=== PATIENT | male | born 1980 | race Caucasian/White ===

== ENCOUNTER 2018-10-20 19:48 | Inpatient (IN) | payer MEDICAID ==
[2018-10-20 20:24] LABS: ADD MAN DIFF? NO
[2018-10-20 20:27] LABS: WHITE BLOOD COUNT 8.6 10^3/ul (4.8-10.8)
[2018-10-20 20:27] LABS: BASOPHILS % 0.2 % (0.0-2.0); EOSINOPHILS # 0.1 10^3/ul (0.0-0.5); EOSINOPHILS % 0.7 % (0.0-7.0); HEMATOCRIT 41.5 % (42.0-52.0); HEMOGLOBIN 14.2 g/dl (14.0-18.0); LYMPHOCYTES # 1.7 10^3/ul (0.8-2.9); LYMPHOCYTES % 19.9 % (15.0-51.0); MEAN CORPUSCULAR HEMOGLOBIN 28.9 pg (29.0-33.0); MEAN CORPUSCULAR HGB CONC 34.2 g/dl (32.0-37.0); MEAN CORPUSCULAR VOLUME 84.5 fl (82.0-101.0); MEAN PLATELET VOLUME 9.2 fl (7.4-10.4); MONOCYTE # 0.8 10^3/ul (0.3-0.9); MONOCYTES % 9.3 % (0.0-11.0); NEUTROPHILS % 69.5 % (39.0-77.0); PLATELET COUNT 256 10^3/UL (140-415); RED BLOOD COUNT 4.91 10^6/ul (4.70-6.10); RED CELL DISTRIBUTION WIDTH 11.7 % (11.5-14.5)
[2018-10-20] MEDS: SODIUM CHLORIDE 0.9% 1L BAG IV* (20:28)
[2018-10-20] MEDS: ACETAMINOPHEN 325 MG TAB PO (20:28)
[2018-10-20] MEDS: CEFEPIME 2GM/50 ML (PMX) 50 ML IVPB (20:29)
[2018-10-20 20:42] LABS: INR 1.03; PROTIME 13.6 Sec (11.9-14.9); PT RATIO 1.1
[2018-10-20 20:43] LABS: ADD UMIC YES; UR ASCORBIC ACID NEGATIVE (NEGATIVE); UR BILIRUBIN (Dip) NEGATIVE (NEGATIVE); UR BLOOD (Dip) 2+ mg/dL (NEGATIVE); UR CLARITY CLEAR (CLEAR); UR COLOR STRAW (YELLOW); UR GLUCOSE (Dip) NEGATIVE (NEGATIVE); UR KETONES (Dip) NEGATIVE (NEGATIVE); UR LEUKOCYTE ESTERASE (Dip) NEGATIVE Leu/ul (NEGATIVE); UR NITRITE (Dip) NEGATIVE (NEGATIVE); UR RBC 7 /HPF (0-5); UR SPECIFIC GRAVITY (Dip) 1.006 (1.003-1.030); UR TOTAL PROTEIN (Dip) NEGATIVE (NEGATIVE); UR UROBILINOGEN (Dip) NEGATIVE (NEGATIVE); UR WBC 0 /HPF (0-5)
[2018-10-20] MEDS: ASPIRIN 325 MG TAB PO (20:45)
[2018-10-20 20:48] LABS: ALANINE AMINOTRANSFERASE 15 IU/L (13-69); ALBUMIN 4.7 g/dl (3.3-4.9); ALBUMIN/GLOBULIN RATIO 1.14; ALKALINE PHOSPHATASE 65 IU/L (42-121); ANION GAP 10 (5-13); ASPARTATE AMINO TRANSFERASE 20 IU/L (15-46); BILIRUBIN,INDIRECT 1.2 mg/dl (0-1.1); BILIRUBIN,TOTAL 1.2 mg/dl (0.2-1.3); BLOOD UREA NITROGEN 12 mg/dl (7-20); CALCIUM 9.4 mg/dl (8.4-10.2); CARBON DIOXIDE 28 mmol/L (21-31); CHLORIDE 101 mmol/L (97-110); CREATININE 0.95 mg/dl (0.61-1.24); Estimated GFR > 60 mL/min (>60); GLUCOSE 99 mg/dl (70-220); SODIUM 139 mmol/L (135-144); TOTAL PROTEIN 8.8 g/dl (6.1-8.1)
[2018-10-20] MEDS: VANCOMYCIN 1 GM (PMX) 250 ML IVPB (20:59)
[2018-10-20 21:00] LABS: TROPONIN-I < 0.012 ng/ml (0.000-0.120)
[2018-10-20 21:05] LABS: CREATINE KINASE 81 IU/L (23-200)
[2018-10-20 21:06] LABS: C-REACTIVE PROTEIN 4.1 mg/dl (0.0-0.9)
[2018-10-20 21:15] LABS: CK INDEX 0.3; CK-MB < 0.22 ng/ml (0.0-2.4)
[2018-10-20 22:03] LABS: ERYTHROCYTE SEDIMENTATION RATE 25 mm/Hr (0-15)
[2018-10-20] MEDS: SOD CHLORIDE 0.9% 100 ML (22:10)
[2018-10-20] MEDS: IOHEXOL 300MG/ML 150 ML BTL (22:10)
[2018-10-20] MEDS ORDERED: NACL 0.9% 3 ML SYG IV (23:30)
[2018-10-20] MEDS ORDERED: ONDANSETRON 4 MG INJ IV (23:30)
[2018-10-20] MEDS ORDERED: BISACODYL (EC) 5 MG TAB PO (23:30)
[2018-10-20] MEDS ORDERED: VANCOMYCIN IV PER PHARMACY XX (23:30)
[2018-10-20] MEDS ORDERED: DOCUSATE SODIUM 100 MG CAP PO (23:30)
[2018-10-20] MEDS ORDERED: HYDROCODONE/APAP (5/325) TAB PO (23:30)
[2018-10-21 00:07] LABS: TROPONIN-I < 0.012 ng/ml (0.000-0.120)
[2018-10-21] MEDS ORDERED: VANCOMYCIN 750 MG (PMX) 250 ML IVPB (01:00)
[2018-10-21] MEDS: PIPER-TAZO 3.375 GM IV (PMX) 100 ML IVPB ×5 (01:03→23:21)
[2018-10-21 01:37] LABS: CREATINE KINASE 64 IU/L (23-200)
[2018-10-21 01:51] LABS: CK INDEX 0.3; CK-MB < 0.22 ng/ml (0.0-2.4); TROPONIN-I < 0.012 ng/ml (0.000-0.120)
[2018-10-21 06:52] LABS: ADD MAN DIFF? NO
[2018-10-21 06:59] LABS: BASOPHILS % 0.3 % (0.0-2.0); EOSINOPHILS # 0.1 10^3/ul (0.0-0.5); EOSINOPHILS % 1.8 % (0.0-7.0); HEMATOCRIT 38.1 % (42.0-52.0); LYMPHOCYTES # 1.2 10^3/ul (0.8-2.9); LYMPHOCYTES % 17.5 % (15.0-51.0); MEAN CORPUSCULAR HEMOGLOBIN 28.4 pg (29.0-33.0); MEAN CORPUSCULAR HGB CONC 34.1 g/dl (32.0-37.0); MEAN CORPUSCULAR VOLUME 83.2 fl (82.0-101.0); MEAN PLATELET VOLUME 9.1 fl (7.4-10.4); MONOCYTE # 0.8 10^3/ul (0.3-0.9); NEUTROPHIL # 4.9 10^3/ul (1.6-7.5); NEUTROPHILS % 68.8 % (39.0-77.0); PLATELET COUNT 204 10^3/UL (140-415); RED BLOOD COUNT 4.58 10^6/ul (4.70-6.10)
[2018-10-21 06:59] LABS: WHITE BLOOD COUNT 7.1 10^3/ul (4.8-10.8)
[2018-10-21 07:11] LABS: HEMOGLOBIN A1C 4.9 % (0-5.9)
[2018-10-21 07:19] LABS: ALANINE AMINOTRANSFERASE 18 IU/L (13-69); ALBUMIN 3.5 g/dl (3.3-4.9); ALBUMIN/GLOBULIN RATIO 1.12; ALKALINE PHOSPHATASE 45 IU/L (42-121); ANION GAP 11 (5-13); ASPARTATE AMINO TRANSFERASE 17 IU/L (15-46); BILIRUBIN,INDIRECT 1.5 mg/dl (0-1.1); BILIRUBIN,TOTAL 1.5 mg/dl (0.2-1.3); BLOOD UREA NITROGEN 10 mg/dl (7-20); CALCIUM 8.5 mg/dl (8.4-10.2); CARBON DIOXIDE 24 mmol/L (21-31); CHLORIDE 109 mmol/L (97-110); CREATININE 0.82 mg/dl (0.61-1.24); Estimated GFR > 60 mL/min (>60); GLUCOSE 108 mg/dl (70-220); POTASSIUM 4.1 mmol/L (3.5-5.1); SODIUM 144 mmol/L (135-144); TOTAL PROTEIN 6.6 g/dl (6.1-8.1)
[2018-10-21 07:24] LABS: CHOL/HDL RATIO 4.5 RATIO; CHOLESTEROL 117 mg/dl (100-200); CREATINE KINASE 65 IU/L (23-200); HDL CHOLESTEROL 26 mg/dl (28-63); LDL CHOLESTEROL,CALCULATED 73 mg/dl; TRIGLYCERIDES 90 mg/dl (0-149)
[2018-10-21 07:29] LABS: CK INDEX 0.3; CK-MB < 0.22 ng/ml (0.0-2.4); TROPONIN-I < 0.012 ng/ml (0.000-0.120)
[2018-10-21] MEDS: ACETAMINOPHEN 325 MG TAB PO (11:55)
[2018-10-21 12:15] LABS: HAAIG REFLEX REFLEX FILED
[2018-10-21] MEDS: METOPROLOL 50 MG TAB PO ×2 (12:28→16:00)
[2018-10-21] MEDS: SOD CHLORIDE 0.9% 500 ML IV (13:34)
[2018-10-21 14:50] LABS: HEPATITIS B SURFACE ANTIGEN NEGATIVE (NEGATIVE)
[2018-10-21] MEDS ORDERED: METOPROLOL 5 MG INJ IV ×2 (15:30)
[2018-10-21] MEDS: IBUPROFEN 400 MG TAB PO (16:46)
[2018-10-21 16:53] LABS: HEPATITIS B CORE ANTIBODY NEGATIVE (NEGATIVE); HEPATITIS C VIRAL ANTIBODY NEGATIVE (NEGATIVE)
[2018-10-21] MEDS: IPRATROPIUM (NEB) 0.5 MG/2.5 ML AMP HHN (20:41)
[2018-10-22] MEDS: IPRATROPIUM (NEB) 0.5 MG/2.5 ML AMP HHN ×4 (01:41→19:51)
[2018-10-22] MEDS: PIPER-TAZO 3.375 GM IV (PMX) 100 ML IVPB ×2 (05:46→13:58)
[2018-10-22 08:19] LABS: ADD MAN DIFF? NO
[2018-10-22 08:24] LABS: WHITE BLOOD COUNT 7.1 10^3/ul (4.8-10.8)
[2018-10-22 08:24] LABS: BASOPHILS % 0.3 % (0.0-2.0); EOSINOPHILS % 0.6 % (0.0-7.0); HEMATOCRIT 38.4 % (42.0-52.0); HEMOGLOBIN 13.1 g/dl (14.0-18.0); LYMPHOCYTES # 1.1 10^3/ul (0.8-2.9); LYMPHOCYTES % 15.1 % (15.0-51.0); MEAN CORPUSCULAR HEMOGLOBIN 28.1 pg (29.0-33.0); MEAN CORPUSCULAR HGB CONC 34.1 g/dl (32.0-37.0); MEAN CORPUSCULAR VOLUME 82.4 fl (82.0-101.0); MEAN PLATELET VOLUME 9.2 fl (7.4-10.4); MONOCYTE # 0.6 10^3/ul (0.3-0.9); MONOCYTES % 8.6 % (0.0-11.0); NEUTROPHIL # 5.3 10^3/ul (1.6-7.5); NEUTROPHILS % 75.1 % (39.0-77.0); PLATELET COUNT 234 10^3/UL (140-415); RED BLOOD COUNT 4.66 10^6/ul (4.70-6.10); RED CELL DISTRIBUTION WIDTH 11.9 % (11.5-14.5)
[2018-10-22 08:52] LABS: ALANINE AMINOTRANSFERASE 22 IU/L (13-69); ALBUMIN 3.9 g/dl (3.3-4.9); ALBUMIN/GLOBULIN RATIO 1.05; ALKALINE PHOSPHATASE 53 IU/L (42-121); ANION GAP 9 (5-13); ASPARTATE AMINO TRANSFERASE 22 IU/L (15-46); BILIRUBIN,INDIRECT 1.8 mg/dl (0-1.1); BILIRUBIN,TOTAL 1.8 mg/dl (0.2-1.3); BLOOD UREA NITROGEN 11 mg/dl (7-20); CALCIUM 8.8 mg/dl (8.4-10.2); CARBON DIOXIDE 26 mmol/L (21-31); CHLORIDE 105 mmol/L (97-110); CREATININE 0.95 mg/dl (0.61-1.24); Estimated GFR > 60 mL/min (>60); GLUCOSE 113 mg/dl (70-220); POTASSIUM 3.9 mmol/L (3.5-5.1); SODIUM 140 mmol/L (135-144); TOTAL PROTEIN 7.6 g/dl (6.1-8.1)
[2018-10-22] MEDS: ACETAMINOPHEN 325 MG TAB PO ×2 (08:59→18:18)
[2018-10-22] MEDS: METOPROLOL 100 MG TAB PO ×2 (11:08→16:46)
[2018-10-22] MEDS ORDERED: METOPROLOL 5 MG INJ IV (16:30)
[2018-10-22] MEDS: AZITHROMYCIN 250 MG TAB PO (18:17)
[2018-10-22] MEDS: CEFTRIAXONE 1 GM/NS 50 ML IVPB (18:17)
[2018-10-23] MEDS: IPRATROPIUM (NEB) 0.5 MG/2.5 ML AMP HHN ×4 (01:57→20:09)
[2018-10-23] MEDS: GUAIFENESIN/DM 5ML CUP PO (04:09)
[2018-10-23] MEDS: ACETAMINOPHEN 325 MG TAB PO (04:09)
[2018-10-23 08:24] LABS: ADD MAN DIFF? NO
[2018-10-23 08:37] LABS: WHITE BLOOD COUNT 7.2 10^3/ul (4.8-10.8)
[2018-10-23 08:37] LABS: BASOPHILS % 0.3 % (0.0-2.0); EOSINOPHILS # 0.2 10^3/ul (0.0-0.5); EOSINOPHILS % 2.9 % (0.0-7.0); LYMPHOCYTES # 1.5 10^3/ul (0.8-2.9); LYMPHOCYTES % 21.3 % (15.0-51.0); MEAN CORPUSCULAR HEMOGLOBIN 28.6 pg (29.0-33.0); MEAN CORPUSCULAR HGB CONC 34.2 g/dl (32.0-37.0); MEAN CORPUSCULAR VOLUME 83.7 fl (82.0-101.0); MEAN PLATELET VOLUME 9.4 fl (7.4-10.4); MONOCYTE # 0.8 10^3/ul (0.3-0.9); MONOCYTES % 10.8 % (0.0-11.0); NEUTROPHIL # 4.7 10^3/ul (1.6-7.5); NEUTROPHILS % 64.3 % (39.0-77.0); PLATELET COUNT 231 10^3/UL (140-415); RED BLOOD COUNT 4.54 10^6/ul (4.70-6.10); RED CELL DISTRIBUTION WIDTH 11.9 % (11.5-14.5)
[2018-10-23 09:02] LABS: ALANINE AMINOTRANSFERASE 23 IU/L (13-69); ALBUMIN/GLOBULIN RATIO 1.08; ALKALINE PHOSPHATASE 53 IU/L (42-121); ANION GAP 9 (5-13); ASPARTATE AMINO TRANSFERASE 21 IU/L (15-46); BILIRUBIN,INDIRECT 1.2 mg/dl (0-1.1); BILIRUBIN,TOTAL 1.2 mg/dl (0.2-1.3); BLOOD UREA NITROGEN 12 mg/dl (7-20); CALCIUM 8.9 mg/dl (8.4-10.2); CARBON DIOXIDE 28 mmol/L (21-31); CHLORIDE 104 mmol/L (97-110); CREATININE 0.89 mg/dl (0.61-1.24); Estimated GFR > 60 mL/min (>60); GLUCOSE 103 mg/dl (70-220); POTASSIUM 3.9 mmol/L (3.5-5.1); SODIUM 141 mmol/L (135-144); TOTAL PROTEIN 7.7 g/dl (6.1-8.1)
[2018-10-23] MEDS: METOPROLOL 100 MG TAB PO (10:31)
[2018-10-23] MEDS: SOD CHLORIDE 0.9% 500 ML IV (10:53)
[2018-10-23] MEDS ORDERED: METOPROLOL 5 MG INJ IV (12:30)
[2018-10-23] MEDS: SOD CHLORIDE 0.9% 100 ML (12:43)
[2018-10-23] MEDS: IOHEXOL 100 ML (12:43)
[2018-10-23] MEDS: METOPROLOL 5 MG INJ (12:46)
[2018-10-23] MEDS: CEFTRIAXONE 1 GM/NS 50 ML IVPB (18:10)
[2018-10-23] MEDS: AZITHROMYCIN 250 MG TAB PO (18:10)
[2018-10-24] MEDS: IPRATROPIUM (NEB) 0.5 MG/2.5 ML AMP HHN ×2 (02:05→08:43)
[2018-10-24] MEDS: GUAIFENESIN/DM 5ML CUP PO (02:13)
[2018-10-24 06:22] LABS: ADD MAN DIFF? NO
[2018-10-24 06:35] LABS: WHITE BLOOD COUNT 5.2 10^3/ul (4.8-10.8)
[2018-10-24 06:35] LABS: BASOPHILS % 0.6 % (0.0-2.0); EOSINOPHILS # 0.2 10^3/ul (0.0-0.5); EOSINOPHILS % 4.6 % (0.0-7.0); HEMATOCRIT 41.7 % (42.0-52.0); HEMOGLOBIN 14.2 g/dl (14.0-18.0); LYMPHOCYTES # 1.7 10^3/ul (0.8-2.9); LYMPHOCYTES % 33.2 % (15.0-51.0); MEAN CORPUSCULAR HEMOGLOBIN 28.4 pg (29.0-33.0); MEAN CORPUSCULAR HGB CONC 34.1 g/dl (32.0-37.0); MEAN CORPUSCULAR VOLUME 83.4 fl (82.0-101.0); MEAN PLATELET VOLUME 8.9 fl (7.4-10.4); MONOCYTE # 0.4 10^3/ul (0.3-0.9); MONOCYTES % 8.4 % (0.0-11.0); NEUTROPHIL # 2.7 10^3/ul (1.6-7.5); NEUTROPHILS % 52.4 % (39.0-77.0); PLATELET COUNT 274 10^3/UL (140-415); RED CELL DISTRIBUTION WIDTH 11.6 % (11.5-14.5)
[2018-10-24 07:07] LABS: ALANINE AMINOTRANSFERASE 25 IU/L (13-69); ALBUMIN 4.5 g/dl (3.3-4.9); ALBUMIN/GLOBULIN RATIO 1.12; ALKALINE PHOSPHATASE 56 IU/L (42-121); ANION GAP 13 (5-13); ASPARTATE AMINO TRANSFERASE 27 IU/L (15-46); BILIRUBIN,INDIRECT 0.8 mg/dl (0-1.1); BILIRUBIN,TOTAL 0.8 mg/dl (0.2-1.3); BLOOD UREA NITROGEN 14 mg/dl (7-20); CALCIUM 9.5 mg/dl (8.4-10.2); CARBON DIOXIDE 29 mmol/L (21-31); CHLORIDE 102 mmol/L (97-110); CREATININE 0.84 mg/dl (0.61-1.24); Estimated GFR > 60 mL/min (>60); GLUCOSE 108 mg/dl (70-220); POTASSIUM 4.3 mmol/L (3.5-5.1); SODIUM 144 mmol/L (135-144); TOTAL PROTEIN 8.5 g/dl (6.1-8.1)
== END 2018-10-24 11:35 | disposition home or self-care (01) | DRG 871 ==
LOC: TEL 23:12 → E/R 19:48
PROVIDERS: Family Medicine
DX: A41.9 Sepsis, unspecified organism (principal); J18.9 Pneumonia, unspecified organism; E66.9 Obesity, unspecified; Z68.30 Body mass index [BMI] 30.0-30.9, adult; M47.816 Spondylosis without myelopathy or radiculopathy, lumbar region; R94.31 Abnormal electrocardiogram [ECG] [EKG]
CPT/HCPCS: 36415; 71045; 72100; 74177; 75571-59; 75574; 80053; 80061; 81001; 82550; 82553; 83036; 83605; 83735; 84443; 84484; 85025; 85610; 85651; 85730; 86140; 86704; 86709; 86803; 87040-91; 87086; 87340; 93005; 93306; 94640; 94664; 96374; 96375; 99285-25